=== PATIENT | male | born 1965 | race Hispanic/Latino ===

== ENCOUNTER 2021-10-23 11:12 | Outpatient (CLI) | payer MEDICARE ==
--- NOTE | 2021-10-23 13:51 | Cat Scan Report ---
CT ABDOMEN AND PELVIS WITHOUT CONTRAST INDICATION / CLINICAL INFORMATION: Urinary tract infection. TECHNIQUE: All CT scans at this location are performed using CT dose reduction for ALARA by means of automated exposure control. COMPARISON: None available. FINDINGS: ABDOMEN: There is marked left pelvocaliectasis and proximal ureterectasis. There is a 1.5 cm ovoid ca lculus in the left ureter at the L3-4 level, best seen on axial image #105 of series #2. The calculus measures 1241 Hounsfield units. There are several small additional nonobstructive calculi in the lef t lower pole of the left kidney, the largest of which measures approximately 3 to 4 mm. The right kid robert is normal. There is mild increased density in the dependent portion of gallbladder. The gallbladder is normal in size without wall thickening or bile duct dilatation. The liver, spleen, pancreas, adrenal glands an d bowel demonstrate no significant abnormality. There are mild atherosclerotic calcifications involvi ng the abdominal aorta without aneurysm. No adenopathy is present. There are minimal patchy areas of tree-in-bud parenchymal disease in the periphery of both lower lung zones. Moderate coronary artery calcification is present. PELVIS: There is a left hip prosthesis causing streak artifact. There are advanced degenerative novoa es involving the right hip. The distal ureters, urinary bladder, prostate gland and seminal vesicles are normal. There is no evidence of diverticulitis or appendicitis. No abnormal mass or fluid collection is seen. There is a small fat-containing left inguinal hernia without complication. There is a mildly enlarge d lymph node in the left external iliac chain, measuring approximately 1.1 cm short axis. The lymph n ode contains multiple high density foci may represent calcifications or metal. This likely represents a reactive lymph node related to the left hip prosthesis. IMPRESSION: 1. 1.5 cm calculus in the left ureter at the L3-4 level is causing marked hydronephrosis. 2. Small nonobstructive left renal calculi. 3. Possible cholelithiasis. 4. 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 CRITICAL RESULT Time of Discovery (INGREDIENT SCALER HELPER/CDT): 12:40 PM Time of Communication (INGREDIENT SCALER HELPER/CDT): 12:44 PM Licensed Practitioner Receiving Report: Dr. Nini Balderas's nurse. Read-Back Performed: Yes. Signer Name: Luis Fernandez MD Signed: 10/23/2021 1:47 PM Workstation Name: [id number]
== END 2021-10-23 11:13 | disposition home or self-care (01) ==
LOC: CT 11:12
PROVIDERS: ATTEND Urology
DX: N20.2 Calculus of kidney with calculus of ureter (principal); N39.0 Urinary tract infection, site not specified; K80.20 Calculus of gallbladder without cholecystitis without obstruction; I71.4 Abdominal aortic aneurysm, without rupture; I70.0 Atherosclerosis of aorta; I25.10 Atherosclerotic heart disease of native coronary artery without angina pectoris; N13.30 Unspecified hydronephrosis; M16.10 Unilateral primary osteoarthritis, unspecified hip
CPT/HCPCS: 74176

== ENCOUNTER 2021-11-30 06:10 | Day surgery (SDC) | payer MEDICARE ==
[~2021-11-30 06:10] MED LIST: LACTATED RINGERS 1,000 ML IV SCH; MIDAZOLAM 2 MG/2 ML INJ IV NR
[2021-11-30] MEDS ORDERED: propofoL 200 MG/20 ML VIAL IV ONE (07:22)
[2021-11-30] MEDS ORDERED: fentaNYL 100 MCG/2 ML INJ ONE (07:22)
[2021-11-30] MEDS ORDERED: LIDOCAINE MPF (2%) 20 MG/1 ML VIAL 5 ML ONE (07:22)
[2021-11-30] MEDS ORDERED: ceFAZolin/Water 2 GM/20 ML 2 GM/20 ML SYRINGE IV ONE (07:25)
[2021-11-30] MEDS ORDERED: ceFAZolin/STERILE WATER 2 GM/20 ML SYRINGE IV NR (07:30)
[2021-11-30] MEDS ORDERED: LACTATED RINGERS 1000 ML IV SOLN IV ONE (07:30)
[2021-11-30] MEDS ORDERED: HYDROmorphone 1 MG/1 ML INJ IV PRN (07:32)
--- NOTE | 2021-11-30 07:32 | Anesthesia Day of Surgery ---
Anesthesia Day of Surgery - Day of Surgery Patient Examined: Yes Patient H&P Reviewed: Yes Patient is NPO: Yes
--- NOTE | 2021-11-30 07:32 | Anesthesia Consultation ---
Anesthesia Consult and Med Hx Date of service: 11/30/21 - Airway Anesthetic Teeth Evaluation: Poor (missing upper incisors) ROM Head & Neck: Adequate Mental/Hyoid Distance: Adequate Mallampati Class: Class II Intubation Access Assessment: Probably Good - Pre-Operative Health Status ASA Pre-Surgery Classification: ASA3 Proposed Anesthetic Plan: General - Pulmonary Hx Smoking: No Hx Respiratory Symptoms: No (COVID 05/2021; resolved) Hx Sleep Apnea: No (CARMINA PRE SCREEN LOW RISK) - Cardiovascular System Hx Hypertension: No Hx Heart Attack/AMI: No - Central Nervous System Hx Neuromuscular Disorder: Yes (multiple sclerosis w/ b/l leg weakness) CVA: No - Endocrine Hx Renal Disease: No Hx Liver Disease: No Hx Insulin Dependent Diabetes: No Hx Non-Insulin Dependent Diabetes: No Hx Thyroid Disease: No - Additional Comments Anesthesia Medical History Comments: No hx anesthetic complications.
[2021-11-30] MEDS ORDERED: ONDANSETRON 4 MG/2 ML INJ IV PRN (08:00)
[2021-11-30] MEDS ORDERED: dexAMETHasone 20 MG/5 ML VIAL ONE (08:59)
[2021-11-30] MEDS ORDERED: ONDANSETRON 4 MG/2 ML INJ ONE (09:00)
[2021-11-30] MEDS ORDERED: WATER FOR IRRIG STERILE 2000 ML IR ONE (09:00)
--- NOTE | 2021-11-30 09:04 | Short Stay Summary ---
Short Stay Documentation Date of service: 11/30/21 - History H&P: obtained from office - Allergies and Medications Current Medications: Allergies No Known Allergies Allergy (Verified 11/17/21 11:38) Home Medications Medication Instructions Recorded Confirmed Last Taken Type Ascorbic Acid [Vitamin C] 1,000 mg PO DAILY 11/17/21 11/17/21 Unknown History AtorvaSTATin [Lipitor] 10 mg PO QHS 11/17/21 11/17/21 Unknown History Cholecalciferol (Vitamin D3) 2,000 unit PO QDAY 11/17/21 11/17/21 Unknown History [Vitamin D3 2,000 UNIT CAP] Flaxseed Oil [Flaxseed] 1,000 mg PO DAILY 11/17/21 11/17/21 Unknown History Fluticasone [Flonase] 1 spray NS PRN PRN 11/17/21 11/17/21 Unknown History Multivit-Mins/Iron/Folic/Lycop 1 each PO DAILY 11/17/21 11/17/21 Unknown History [Centrum Men's Tablet] [place]-3 Fatty Acids/Fish Oil [Fish 1 each PO DAILY 11/17/21 11/17/21 Unknown History Oil 1,000 mg Capsule] Tamsulosin [Flomax] 0.4 mg PO QDAY 11/17/21 11/17/21 Unknown History Teriflunomide [Aubagio] 14 mg PO QDAY 11/17/21 11/17/21 Unknown History Vitamin A 10,000 unit PO DAILY 11/17/21 11/17/21 Unknown History Vitamin B Complex [Balanced B-50] 1 each PO DAILY 11/17/21 11/17/21 Unknown History Vitamin E 200 unit PO DAILY 11/17/21 11/17/21 Unknown History Active Medications Cefazolin Sodium (Cefazolin/Sterile Water 2 Gm/20 Ml Syringe) 2 gm IV PREOP NR Hydromorphone HCl (Hydromorphone 1 Mg/1 Ml Inj) 0.5 mg IV Q10MIN PRN PRN Reason: Pain , Severe (7-10) Stop: 11/30/21 20:00 Lactated Ringer's (Lactated Ringers) 1,000 mls @ 100 mls/hr IV DIRECT ASIA Stop: 11/30/21 23:59 Last Admin: 11/30/21 07:30 Dose: 100 mls/hr Midazolam HCl (Midazolam 2 Mg/2 Ml Inj) 2 mg IV PREOP NR Stop: 11/30/21 23:59 Last Admin: 11/30/21 07:58 Dose: 2 mg - Brief post op/procedure progress note Date of procedure: 11/30/21 Pre-op diagnosis: left ureteral stone Post-op diagnosis: other (impacted) Procedure: cysto, bilat rpg, left ureteroscopy, stent with short string Anesthesia: GETA Surgeon: AKI CARTWRIGHT Pathology: none Condition: stable - Hospital course Hospital course: bactrim, norco, post op infoon chart - Disposition Condition at discharge: Stable Disposition: 01 HOME / SELF CARE / HOMELESS Short Stay Discharge Plan Follow up with: MITCH SERRANO MD [Primary Care Provider] - 7 Days
--- NOTE | 2021-11-30 10:33 | Post Anesthesia Evaluation ---
- Post Anesthesia Evaluation Patient Participated: Yes Airway Patent: Yes Stable Respiratory Function: Yes Nausea/Vomiting: No Temp > 96.8F: Yes Pain Manageable: Yes Adequeate Hydration: Yes Anesthesia Complications: No
--- NOTE | 2021-11-30 14:12 | Operative Report ---
DATE OF SURGERY: 11/30/2021 PREOPERATIVE DIAGNOSIS: Left ureteral and renal stone. POSTOPERATIVE DIAGNOSES: Impacted left ureteral stone with hydronephrosis and renal stone. PROCEDURE: Cystoscopy, bilateral retrograde pyelograms, left ureteroscopy, double-J stent placement (6-Belgian 26 cm with a short internal string). SURGEON: Alan Terrazas MD ANESTHESIA: General. ESTIMATED BLOOD LOSS: Minimal. FLUIDS: Crystalloid. COMPLICATIONS: No complications. INDICATIONS: This patient is a 56-year-old gentleman seen in the office for recurrent urinary tract infection. He contracted COVID in 2020, was at [facility] and ultimately had to be transferred to a rehab center. He has been in a wheelchair since then, wears a condom catheter and has had recurrent urinary tract infections. He has had a hernia repair and left hip replacement. He was planned for CT and cystoscopy. At CT, he was found to have a 1.5 mm left ureteral stone and a 6 mm left renal stone with hydronephrosis. He presents now for surgical intervention. Risks, benefits and complications were explained. He received surgical clearance by Dr. Kaye Basilio. DESCRIPTION OF PROCEDURE: The patient was taken to the operative suite, placed in a supine position. After adequate general anesthesia, placed in the dorsal lithotomy position, prepped and draped in a sterile fashion. Pancystourethroscopy was performed with a 22-Belgian Storz cystoscope. The patient had some mild urethral stenosis, I was able to advance a wire as well as advance the scope. He had some mild trilobar obstruction in his bladder, positive trabeculation and concentrated urine. Bilateral retrograde pyelograms were obtained with an 8-Belgian Gassaway catheter and 8 mL of contrast. No filling defects or obstruction on the right. Left side, 15 mm mid ureteral stone and a 6 mm renal stone. Two 0.035 Glidewires were placed. Rigid ureteroscopy was performed. There was edema at the entire ureter, I was unable to get up to the stone due to the edema. Also was concerned about infection in the urine and sent the urine for culture. At that point, a 6-Belgian 26 cm double-J stent was advanced around the stone. Fluoroscopy confirmed good position. Short string was left in the bladder. Locke catheter was left indwelling. An 18-Belgian 5 mL Locke balloon was left indwelling. Rectal exam was benign. He was extubated and taken to recovery room in stable condition. Plan; he will go home on Bactrim and [place], treated infection, set him up for urodynamic testing and then followed by treatment of his stones with extracorporeal shock wave lithotripsy. TID: [id number] RECEIPT: [id number] LEO/RONAL/HUAN
--- NOTE | 2021-11-30 16:25 | Fluoroscopy Report ---
INTRAOPERATIVE FLUOROSCOPY: RETROGRADE UROGRAPHY INDICATION / CLINICAL INFORMATION: LT URETERAL STONE. TECHNIQUE: Intraoperative spot images were obtained during the procedure. FINDINGS: Images show left-sided retrograde urography with placement of ureteral stent See operative/procedure note by performing physician for full details. Fluoroscopy Time: 1 minute and 25 seconds. Fluoroscopy Images: 4. Signer Name: Jonah Salgado MD Signed: 11/30/2021 4:20 PM Workstation Name: [id number]
[2021-11-30 17:48] VITALS: BP 129/75
== END 2021-11-30 11:25 | disposition home or self-care (01) ==
LOC: OR 06:10
PROVIDERS: ATTEND Urology
DX: N13.2 Hydronephrosis with renal and ureteral calculous obstruction (principal); N39.0 Urinary tract infection, site not specified; E78.00 Pure hypercholesterolemia, unspecified; Z79.899 Other long term (current) drug therapy; Z96.642 Presence of left artificial hip joint; Z98.890 Other specified postprocedural states
CPT/HCPCS: 52332; 52351; 74420; 87076; 87086; 87186; C1758; C1769; C2617; J0690; J1100; J2250; J2405; J2704; J3010; J7120; Q9967

== ENCOUNTER 2022-04-19 07:22 | Day surgery (SDC) | payer MEDICARE ==
[2022-04-19] MEDS ORDERED: LACTATED RINGERS 1,000 ML IV SCH (09:00)
[2022-04-19] MEDS ORDERED: ceFAZolin/Water 2 GM/20 ML 2 GM/20 ML SYRINGE IV NR (09:00)
--- NOTE | 2022-04-19 10:20 | Anesthesia Day of Surgery ---
Anesthesia Day of Surgery - Day of Surgery Patient Examined: Yes Patient H&P Reviewed: Yes Patient is NPO: Yes
--- NOTE | 2022-04-19 10:20 | Anesthesia Consultation ---
Anesthesia Consult and Med Hx Date of service: 04/19/22 - Airway Anesthetic Teeth Evaluation: Good ROM Head & Neck: Adequate Mental/Hyoid Distance: Adequate Mallampati Class: Class II Intubation Access Assessment: Good - Pulmonary Exam CTA: Yes - Cardiac Exam Cardiac Exam: No Murmur - Pre-Operative Health Status ASA Pre-Surgery Classification: ASA3 Proposed Anesthetic Plan: General - Pulmonary Hx Smoking: No Hx Respiratory Symptoms: No (COVID 05/2021; resolved) Hx Sleep Apnea: No (CARMINA PRE SCREEN LOW RISK) - Cardiovascular System Hx Hypertension: No Hx Heart Attack/AMI: No - Central Nervous System Hx Neuromuscular Disorder: Yes (multiple sclerosis w/ b/l leg weakness) CVA: No Hx Back Pain: Yes (LOWER) Hx Psychiatric Problems: No - Endocrine Hx Renal Disease: No Hx Liver Disease: No Hx Insulin Dependent Diabetes: No Hx Non-Insulin Dependent Diabetes: No Hx Thyroid Disease: No - Hematic Hx Anemia: No Hx Sickle Cell Disease: No - Other Systems Hx Alcohol Use: No Hx Substance Use: No Hx Cancer: No - Additional Comments Anesthesia Medical History Comments: high cholostrol
[2022-04-19] MEDS ORDERED: fentaNYL 100 MCG/2 ML INJ ONE (10:28)
[2022-04-19] MEDS ORDERED: propofoL 200 MG/20 ML VIAL IV ONE (10:28)
[2022-04-19] MEDS ORDERED: ONDANSETRON 4 MG/2 ML INJ ONE (10:28)
[2022-04-19] MEDS ORDERED: LIDOCAINE MPF (2%) 20 MG/1 ML VIAL 5 ML ONE (10:30)
--- NOTE | 2022-04-19 11:38 | Short Stay Summary ---
Short Stay Documentation Date of service: 04/19/22 - History H&P: obtained from office - Allergies and Medications Current Medications: Allergies No Known Allergies Allergy (Verified 03/23/22 10:29) Home Medications Medication Instructions Recorded Confirmed Last Taken Type Ascorbic Acid [Vitamin C] 1,000 mg PO DAILY 11/17/21 04/08/22 04/18/22 History AtorvaSTATin [Lipitor] 10 mg PO QHS 11/17/21 04/08/22 04/18/22 History Cholecalciferol (Vitamin D3) 2,000 unit PO QDAY 11/17/21 04/08/22 04/18/22 History [Vitamin D3 2,000 UNIT CAP] Flaxseed Oil [Flaxseed] 1,000 mg PO DAILY 11/17/21 04/08/22 04/18/22 History Fluticasone [Flonase] 1 spray NS PRN PRN 11/17/21 04/08/22 04/18/22 History Multivit-Mins/Iron/Folic/Lycop 1 each PO DAILY 11/17/21 04/08/22 04/18/22 History [Centrum Men's Tablet] [place]-3 Fatty Acids/Fish Oil [Fish 1 each PO DAILY 11/17/21 04/08/22 04/18/22 History Oil 1,000 mg Capsule] Tamsulosin [Flomax] 0.4 mg PO QDAY 11/17/21 04/08/22 04/18/22 History Teriflunomide [Aubagio] 14 mg PO QDAY 11/17/21 04/08/22 04/18/22 History Vitamin A 10,000 unit PO DAILY 11/17/21 04/08/22 04/18/22 History Vitamin B Complex [Balanced B-50] 1 each PO DAILY 11/17/21 04/08/22 04/18/22 History Vitamin E 200 unit PO DAILY 11/17/21 04/08/22 04/18/22 History Active Medications Lactated Ringer's (Lactated Ringers) 1,000 mls @ 100 mls/hr IV DIRECT ASIA Last Admin: 04/19/22 08:45 Dose: 100 mls/hr Cefazolin Sodium (Ancef/Sterile Water 2 Gm/20 Ml) 2 gm in 20 mls @ 80 mls/hr IV PREOP NR; Protocol Stop: 04/19/22 15:00 - Brief post op/procedure progress note Date of procedure: 04/19/22 Pre-op diagnosis: BPH, retained left stone Post-op diagnosis: other (left ureteral stone) Procedure: cysto, bilat rpg, left stnet exchange (6x26F), REZUM therapy of prostate Anesthesia: RIDDHI Surgeon: AKI CARTWRIGHT Pathology: none Condition: stable - Disposition Condition at discharge: Stable Disposition: 01 HOME / SELF CARE / HOMELESS Short Stay Discharge Plan Follow up with: MITCH SERRANO MD [Primary Care Provider] - 7 Days
[2022-04-19] MEDS ORDERED: SODIUM CHLORIDE 0.9% IRRIG SOLN 2000 ML IR ONE (11:52)
[2022-04-19] MEDS ORDERED: WATER FOR IRRIG STERILE 2000 ML IR ONE (11:52)
--- NOTE | 2022-04-19 12:29 | Operative Report ---
DATE OF SURGERY: 04/19/2022 PREOPERATIVE DIAGNOSIS: Benign prostatic hypertrophy, retained left double-J stent. POSTOPERATIVE DIAGNOSIS: Benign prostatic hypertrophy, retained left double-J stent. Left 1 cm mid ureteral stone. PROCEDURE PERFORMED: Cystoscopy, bilateral retrograde pyelograms, left double-J stent exchange (6-English 26 cm) with a short internal string, Rezum vapor ablation of the prostate. SURGEON: Alan Terrazas MD ANESTHESIA: General. ESTIMATED BLOOD LOSS: Minimal. FLUIDS: Crystalloid. COMPLICATIONS: No complications. INDICATIONS: This 57-year-old gentleman who has been followed in the office for obstructive urinary symptoms and ureteral stone, which was treated in the past. His stent has been indwelling for several months, but, however, he presents for treatment of his BPH today, also has a history of multiple sclerosis and was COVID positive in the past with worsening of his multiple sclerosis. Risks, benefits, and complications were explained. DESCRIPTION OF PROCEDURE: The patient was taken to the operative suite, placed in a supine position. After adequate general anesthesia, he was placed in the dorsal lithotomy position, prepped and draped in a sterile fashion. Pancystourethroscopy was performed with a 22-English Storz cystoscope. The patient had some mild to moderate trilobar obstruction. Both ureteral orifices in normal position. Left double-J stent in place. No tumors or stones were noted in the bladder. Felt [place] film revealed obvious 1 cm stone mid ureter. Stent in good position. The stent was engaged with a grasper, pulled out to the meatus. A 0.035 Glidewire was advanced up the left collecting system under fluoroscopic guidance. A new stent was exchanged 6-English 26 cm. Fluoroscopy was in good position. Next, using the Rezum vapor therapy, prostate was found to be 2 cm and one treatment on each lateral lobe as well as one treatment in the median lobe was performed. They were all 9 second treatments. The patient tolerated the procedure well. An 18-English Locke catheter was placed without difficulty. Rectal exam was benign. He was extubated and taken to recovery room. The patient has his antibiotics and will follow up in the office for further discussion regarding his stone as well as Locke catheter removal. TID: [id number] RECEIPT: [id number] LEO/AYLEEN/DARCY
[2022-04-19 13:30] VITALS: BP 131/79
--- NOTE | 2022-04-19 13:55 | Fluoroscopy Report ---
FLUOROSCOPY RETROGRADE UROGRAPHY INDICATION: LEFT URETERAL STONE.. COMPARISON: None. IMPRESSION: 0.5 minutes of fluoroscopy time was provided by radiology during retrograde urography by the urologist. Academic Assistant film demonstrates a left ureteral stent in good position with an approximate 1 cm stone along the mid left ureter. Contrast was injected in the right renal collecting system which demonstrates no abnormality. 4 fluoroscopic images are presented. Please correlate with the procedura l report as needed. Signer Name: Demetrio Jimenez Jr, MD Signed: 04/19/2022 1:51 PM Workstation Name: [id number]
== END 2022-04-19 12:45 | disposition home or self-care (01) ==
LOC: OR 07:22
PROVIDERS: ATTEND Urology
DX: N40.0 Benign prostatic hyperplasia without lower urinary tract symptoms (principal); T83.192A Other mechanical complication of indwelling ureteral stent, initial encounter; E78.00 Pure hypercholesterolemia, unspecified; Z79.899 Other long term (current) drug therapy; Z98.890 Other specified postprocedural states; Z87.442 Personal history of urinary calculi; Z87.440 Personal history of urinary (tract) infections; Z96.642 Presence of left artificial hip joint; Y82.8 Other medical devices associated with adverse incidents; Y92.89 Other specified places as the place of occurrence of the external cause
CPT/HCPCS: 52332; 53854; 74420; C1758; C1769; C2617; J0690; J2405; J2704; J3010; J7120; Q9967